=== PATIENT | female | born 1995 | race Caucasian/White ===

== ENCOUNTER → 2020-01-04 | Outpatient (CLI) | payer OTHER ==
--- NOTE | 2020-01-04 16:23 | NUR ---
Pt, Angelique Samaniego presents to walk-in clinic with 2.5 month old baby boy, Quang Samaniego, for assistance with latching and weaning from the shield. Quang was born on [birth year] at a hospital in [place]. Pt reports his weight was 6#14oz and that they were provided with a nipple shield after because Quang had latch problems. Lizy has gained weight well with as his weight today is 12#0.4oz. Pt reports milk supply is abundant and Quang has trouble staying latched with let-down. At this feeding Lizy needed help with LC holding his chin down widely to maintain a latch. He seems to do pretty well for about 10 minutes by as the feeding progressed pt states she feels his tongue moving around against the nipple and he lets some of the areola retract from his latch. AFter nursing the left side Quang has a weight gain of 09.oz (56 gms). He is offered the right breast but does not latch, even after the shield is provided. Quang is noted to have some stridor with retractions noted at the base of his neck. Discussed with pt to let him have plenty of time to settle down when his breathing becomes rapid and squeaky. LC notes upon digital exam of Quang's mouth that he has a high palate and possible tongue tie. POC: continue feeding Quang is the usual fashion (with and without sheild as able) as he is gaining weight well. consider evaluation of tongue tie. F/U: Walk in clinic as desired. Quesitons invited and answered.
== END ==
LOC: LAC 12:19
DX: Z39.1 Encounter for care and examination of lactating mother (principal); Z71.89 Other specified counseling